=== PATIENT | male | born 1950 ===

== ENCOUNTER 2018-05-14 18:14 | Emergency (ER) | payer SELFPAY ==
[~2018-05-14] VITALS: Ht 180.3 cm; Wt 90.0 kg
[2018-05-14] MEDS ORDERED: ALBU4TAB6 PO (18:20)
[2018-05-14] MEDS ORDERED: PREDNISONE 20MG TABLET PO STA (18:43)
[2018-05-14] MEDS ORDERED: IPRATROPIUM BROMIDE (0.02%) 0.5MG/2.5ML NEB HHN STA (18:43)
[2018-05-14] MEDS ORDERED: ALBUTEROL (0.083%) 2.5MG/3ML NEB HHN STA (18:43)
[2018-05-14 20:30] VITALS: BP 154/85
== END 2018-05-14 20:31 | disposition home or self-care (01) ==
LOC: ER 18:14
DX: R05 Cough (principal); R06.02 Shortness of breath; R06.2 Wheezing; J45.909 Unspecified asthma, uncomplicated; L40.9 Psoriasis, unspecified; Z79.899 Other long term (current) drug therapy
CPT/HCPCS: 99283; J7512; J7611